=== PATIENT | female | born 1945 | race Caucasian/White ===

== ENCOUNTER 2017-09-10 17:24 | Emergency (ER) | payer MEDICARE, OTHER ==
[~2017-09-10 17:24] MED LIST: Aspirin 81 MG Tab.Chew ONE; Clopidogrel 75 MG Tab ONE; Heparin Sodium 5,000 Units/ML Vial ONE; Metoprolol Tartrate 25 MG Tab ONE
[2017-09-10] MEDS ORDERED: Sodium Chloride 0.9% 10 ML Syringe FLUSH PRN (17:28)
[2017-09-10] MEDS ORDERED: Sodium Chloride 0.9% 1,000 ML IV SCH (17:30)
[2017-09-10] MEDS ORDERED: Morphine 2 MG/ML Syringe IVPUSH ONE (17:40)
[2017-09-10] MEDS ORDERED: Morphine 2 MG/ML Syringe ONE (17:43)
--- NOTE | 2017-09-10 17:50 | EDM.PDOC ---
ED HPI GENERAL MEDICAL PROBLEM - General Chief Complaint: Cardiovascular Problem Stated Complaint: chest pain, sob Time Seen by Provider: 09/10/17 17:27 Source of Information: Reports: Patient History Limitations: Reports: No Limitations - History of Present Illness INITIAL COMMENTS - FREE TEXT/NARRATIVE: Patient arrives with chest pain of 8/10 with radiation to the back and down the left arm. It is sharp and aching. She states it started at around 2:30 this afternoon after leaving [place] and has progressively worsened. She denies any prior MA, does endorse childhood asthma, no COPD. States her medications to be amlodipine and synthroid. She is sweating. She does feel nauseated. Onset: Today, Sudden, Gradual ED ROS GENERAL - Review of Systems Review Of Systems: See Below Constitutional: Reports: Diaphoresis HEENT: Reports: No Symptoms Respiratory: Reports: Shortness of Breath Cardiovascular: Reports: Chest Pain Endocrine: Reports: No Symptoms GI/Abdominal: Reports: Nausea : Reports: No Symptoms Musculoskeletal: Reports: Shoulder Pain, Arm Pain (left sided) Skin: Reports: No Symptoms Neurological: Reports: No Symptoms Psychiatric: Reports: Anxiety Hematologic/Lymphatic: Reports: No Symptoms Immunologic: Reports: No Symptoms ED EXAM, GENERAL - Physical Exam Exam: See Below Exam Limited By: No Limitations General Appearance: Alert, WD/WN, Moderate Distress Eye Exam: Bilateral Eye: EOMI, Normal Inspection, PERRL Ears: Normal TMs Nose: Normal Inspection, Normal Mucosa, No Blood Throat/Mouth: Normal Inspection, Normal Lips, Normal Teeth, Normal Gums, Normal Oropharynx, Normal Voice, No Airway Compromise Head: Atraumatic, Normocephalic Neck: Normal Inspection, Supple, Non-Tender, Full Range of Motion Respiratory/Chest: No Respiratory Distress, Lungs Clear, Normal Breath Sounds, No Accessory Muscle Use, Chest Non-Tender Cardiovascular: Normal Peripheral Pulses, Regular Rate, Rhythm, No Edema, No Gallop, No JVD, No Murmur, No Rub Peripheral Pulses: 2+: Posterior Tibial (L), Posterior Tibial (R), Dorsalis Pedis (L), Dorsalis Pedis (R) GI/Abdominal: Normal Bowel Sounds, Soft, Non-Tender, No Organomegaly, No Distention, No Abnormal Bruit, No Mass Back Exam: Normal Inspection, Full Range of Motion, NT Extremities: Other (increased pain with left arm movement and palpation of chest , back, and arm) Neurological: Alert, Oriented, CN II-XII Intact, Normal Cognition, Normal Gait, Normal Reflexes, No Motor/Sensory Deficits Psychiatric: Anxious Skin Exam: Diaphoretic Lymphatic: No Adenopathy EKG INTERPRETATION EKG Date: 09/10/17 Time: 17:28 Rhythm: Other (sr with 1st degree block) Rate (Beats/Min): 81 [place]: Normal P-Wave: Present QRS: Normal ST-T: Elevated (inferior ST elevation) QT: Normal Comparison: NA - No Prior EKG EKG Interpretation Comments: sinus rhythm with 1st degree AV block IVC delay Marked ST elevation to inferior leads reciprocal depression to lateral leads Course - Orders/Labs/Meds Orders: Active Orders 24 hr Category Date Time Status CBC WITH AUTO DIFF [HEME] Stat Lab 09/10/17 17:28 Ordered COMPREHENSIVE METABOLIC PN,CMP [CHEM] Stat Lab 09/10/17 17:28 Ordered INR,PT,PROTHROMBIN TIME [COAG] Stat Lab 09/10/17 17:28 Ordered PRO B-TYPE NATRIUR PEPT,BNPPRO [CHEM] Stat Lab 09/10/17 17:28 Ordered TROPONIN I [CHEM] Stat Lab 09/10/17 17:28 Ordered TSH ULTRASENSITIVE [CHEM] Stat Lab 09/10/17 17:28 Ordered Sodium Chloride 0.9% [Normal Saline] 1,000 ml Med 09/10/17 17:30 Ordered IV ASDIRECTED Sodium Chloride 0.9% [Saline Flush] Med 09/10/17 17:28 Ordered 10 ml FLUSH ASDIRECTED PRN Saline Lock Insert [OM.PC] Routine Oth 09/10/17 17:28 Ordered Medication Orders Sodium Chloride (Normal Saline) 1,000 mls @ 999 mls/hr IV ASDIRECTED ANABELLA Sodium Chloride (Saline Flush) 10 ml FLUSH ASDIRECTED PRN PRN Reason: Keep Vein Open Meds: Medications Generic Name Dose Route Start Last Admin Trade Name Freq PRN Reason Stop Dose Admin Sodium Chloride 1,000 mls @ 999 mls/hr 09/10/17 17:30 Normal Saline IV ASDIRECTED ANABELLA Sodium Chloride 10 ml 09/10/17 17:28 Saline Flush FLUSH ASDIRECTED PRN Keep Vein Open - Re-Assessments/Exams Free Text/Narrative Re-Assessment/Exam: 09/10/17 18:02 EKG shows inferior lead STEMI with lateral wall reciprocal ST depression. Report and EKG reviewed with Dr. Ceja, ethanol operations manager acid treater at [facility] in [place]. Patient given 600 Plavix PO, 324 ASA PO, 4,000 units heparin bolus IV, 25 mg metoprolol PO. ED admission time 1724, exit 1752 Departure - Departure Time of Disposition: 17:52 Disposition: DC/Tfer to Acute Hospital 02 Reason for Transfer *Q: Primary PCI Indicated Condition: Fair Clinical Impression: ST elevation myocardial infarction (STEMI) of inferior wall Forms: Interfacility Transfer EMTALA, ED Department Discharge ED Communication - ED Communication Date/Time Date: 09/10/17 Time Called: 17:35 - Discussed Case With (1) Discussed Case With (1): Inpatient Dampproofer (Dr. Ceja called regarding patient presenting symptoms and EKG. EKG was reviewed over the line and did agree to STEMI diagnosis. Informed she would be arriving within the hour.) - My Orders Last 24 Hours: My Active Orders 09/10/17 17:28 CBC WITH AUTO DIFF [HEME] Stat COMPREHENSIVE METABOLIC PN,CMP [CHEM] Stat INR,PT,PROTHROMBIN TIME [COAG] Stat PRO B-TYPE NATRIUR PEPT,BNPPRO [CHEM] Stat TROPONIN I [CHEM] Stat TSH ULTRASENSITIVE [CHEM] Stat Sodium Chloride 0.9% [Saline Flush] 10 ml FLUSH ASDIRECTED PRN Saline Lock Insert [OM.PC] Routine 09/10/17 17:30 Sodium Chloride 0.9% [Normal Saline] 1,000 ml IV ASDIRECTED - Assessment/Plan Last 24 Hours: My Active Orders 09/10/17 17:28 CBC WITH AUTO DIFF [HEME] Stat COMPREHENSIVE METABOLIC PN,CMP [CHEM] Stat INR,PT,PROTHROMBIN TIME [COAG] Stat PRO B-TYPE NATRIUR PEPT,BNPPRO [CHEM] Stat TROPONIN I [CHEM] Stat TSH ULTRASENSITIVE [CHEM] Stat Sodium Chloride 0.9% [Saline Flush] 10 ml FLUSH ASDIRECTED PRN Saline Lock Insert [OM.PC] Routine 09/10/17 17:30 Sodium Chloride 0.9% [Normal Saline] 1,000 ml IV ASDIRECTED
[2017-09-10 18:11] LABS: CHLORIDE,CL 104 mmol/L (98-107); SODIUM,NA 142 mmol/L (136-145)
[2017-09-10 18:13] LABS: ANION GAP 17.3 mmol/L (10-20)
== END 2017-09-10 17:52 | disposition short-term general hospital (02) ==
LOC: VM.ED 17:24
DX: I21.19 ST elevation (STEMI) myocardial infarction involving other coronary artery of inferior wall (principal)
CPT/HCPCS: 36415; 80053; 83880; 84443; 84484; 85025; 85610; 96374; 96375; 99284-GF; 99291; A9270-GY; J1644; J2270